=== PATIENT | female | born 1980 | race Caucasian/White ===

== ENCOUNTER 2018-06-09 19:08 | Emergency (ER) | payer BC, MEDICAID, OTHER ==
[2018-06-09 19:28] VITALS: BP 119/62
[2018-06-09] MEDS ORDERED: ACETAMINOPHEN 325 MG TABLET PO ONE (20:02)
[2018-06-09] MEDS ORDERED: PENICILLIN V POTASSIUM 500 MG TABLET PO ONE (20:02)
--- NOTE | 2018-06-09 20:05 | ER Document Report ---
HPI - HPI Patient complains to provider of: Dental pain Onset: Other Pain Level: 3 Context: Patient presents complaining of left upper dental pain. Patient states that she chipped her tooth last week. Patient also complains of an open wound to her right upper extremity that she has had for the past 4 years. Patient states that she has a skin picking habit and she is continually picking at the scab forms over the wound. Patient without any fever. Associated Symptoms: Other - Dental pain, right upper arm wound. denies: Fever Exacerbated by: Denies Relieved by: Denies Similar symptoms previously: Yes Recently seen / treated by doctor: No - ROS ROS below otherwise negative: Yes Systems Reviewed and Negative: Yes All other systems reviewed and negative - CONSTITUTIONAL Constitutional: DENIES: Fever - GASTROINTESTINAL Gastrointestinal: DENIES: Nausea - MUSCULOSKELETAL Musculoskeletal: DENIES: Back Pain - DERM Skin Color: Normal Notes: Chronic wound right upper arm Past Medical History - General Information source: Patient - Social History Smoking Status: Never Smoker Frequency of alcohol use: None Drug Abuse: None Occupation: assistant food service director Family History: Reviewed & Not Pertinent Psychiatric Medical History: Reports: Hx Bipolar Disorder, Hx Obsessive Compulsive Disorder Past Surgical History: Reports: Hx Bowel Surgery, Hx Section, Hx Orthopedic Surgery, Hx Tonsillectomy Vertical Provider Document - CONSTITUTIONAL Agree With Documented VS: Yes Exam Limitations: No Limitations General Appearance: WD/WN, No Apparent Distress - INFECTION CONTROL TRAVEL OUTSIDE OF THE [place] IN LAST 30 DAYS: No - HEENT HEENT: Atraumatic, Normocephalic Mouth Diagram: 1 - Dental decay, fracture, no gingival abscess, no sublingual or submental swelling. - NECK Neck: Normal Inspection, Supple. negative: Lymphadenopathy-Left, Lymphadenopathy-Right - RESPIRATORY Respiratory: Breath Sounds Normal, No Respiratory Distress - CARDIOVASCULAR Cardiovascular: Regular Rate, Regular Rhythm - BACK Back: Normal Inspection - MUSCULOSKELETAL/EXTREMETIES Musculoskeletal/Extremeties: MAEW - NEURO Level of Consciousness: Awake, Alert, Appropriate Motor/Sensory: No Motor Deficit - DERM Integumentary: Warm, Dry Notes: chronic wound to RUE with excoriation and scarring around the wound margins. No surrounding erythema, no purulent drainage. Course - Re-evaluation Re-evalutation: 06/09/18 Patient with chronic wound to right upper arm with signs of trauma without concerning symptoms for developing cellulitis at this time. Discussed measures that patient can use to avoid scratching at skin. - Vital Signs Vital signs: Temp Pulse Resp BP Pulse Ox 98.6 F 62 16 119/62 97 06/09/18 19:26 06/09/18 19:26 06/09/18 19:26 06/09/18 19:26 06/09/18 19:26 Discharge - Discharge Clinical Impression: Toothache, chronic skin wound, Skin picking habit Condition: Stable Disposition: HOME, SELF-CARE Instructions: Acetaminophen, Penicillin V K ([facility]), Toothache ([facility]) Additional Instructions: Return immediately for any new or worsening symptoms Followup with your primary care provider, call tomorrow to make a followup appointment Follow-up with a dental care provider Prescriptions: Mupirocin [Bactroban 2% Ointment 22 gm] 1 applic TP BID #22 gm Penicillin V Potassium [Penicillin Vk 500 mg Tablet] 500 mg PO BID #20 tablet Referrals: [facility] [Provider Group] - Follow up as needed
== END 2018-06-09 20:40 | disposition home or self-care (01) ==
LOC: ER 19:08
DX: K02.9 Dental caries, unspecified (principal); F42.4 Excoriation (skin-picking) disorder; K08.89 Other specified disorders of teeth and supporting structures
CPT/HCPCS: 99282